=== PATIENT | male | born 1965 | race Caucasian/White ===

== ENCOUNTER 2023-07-22 07:13 | Emergency (ER) | payer OTHER ==
[2023-07-22] MEDS ORDERED: Promethazine 25 MG/ML SDV IM ONE (08:24)
[2023-07-22] MEDS ORDERED: Sodium Chloride 0.9% 1,000 ML IV SCH (08:30)
[2023-07-22] MEDS ORDERED: LORazepam 2 MG/ML SDV IVPUSH ONE (09:08)
[2023-07-22] MEDS ORDERED: Meclizine 25 MG Tab PO ONE (10:29)
== END 2023-07-22 11:02 | disposition home or self-care (01) ==
LOC: JD.ED 07:13
DX: R42 Dizziness and giddiness (principal)
CPT/HCPCS: 70450; 93005; 96361; 96372; 96374; 99284; A9270; J2060; J2550; J7030; 93010